=== PATIENT | female | born 1980 | race Caucasian/White ===

== ENCOUNTER 2017-09-05 05:39 | Inpatient (IN) | payer BC ==
[~2017-09-05] VITALS: Ht 177.8 cm; Wt 85.9 kg
[2017-09-05] VITALS (19 sets, daily range): BP systolic 100–121; BP diastolic 52–90; PULSE 64–101; TEMP 97.4–98.6
[~2017-09-05 05:39] MED LIST: FLOVENT DI50 MCG/Act IH; MOTRIN 600600 MG/TAB PO; PERCOCET 325 MG1 TA2 PO; PRENATAL1 TA7 PO; PROAIR HFA0.09 MG/AC IH; SENOKOT S 50 MG1 TAB PO
[2017-09-05 06:35] LABS: BASO % 0.4 % (0.0-2.0); EOS # 0.1 (0.0-0.7); EOS % 0.7 % (0-4.0); GRAN # 5.1 (1.4-6.5); GRAN % 68.9 % (42.2-75.2); LYMPH # 1.4 (1.2-3.4); LYMPH % 18.8 % (20.0-51.0); MEAN CELL VOLUME 90 fl (80.0-100.0); MEAN CORPUSCULAR HGB CONC 34 g/dl (33.0-37.0); MEAN PLATELET VOLUME 10.3 fl (7.4-10.4); MONO # 0.7 (0.1-0.6); MONO % 10.1 % (1.7-9.3); PLATELET COUNT 195 K/mm3 (130-400); RED BLOOD COUNT 3.76 M/mm3 (4.10-5.30); REDCELL DISTRIBUTION WIDTH-CV 13.2 % (11.5-14.5)
[2017-09-05 06:37] LABS: HEMOGLOBIN 11.4 g/dl (12.5-16.0); MEAN CORPUSCULAR HEMOGLOBIN 30 pg (27.0-31.0)
[2017-09-05] MEDS ORDERED: TUMS500 MG PO (06:47)
[2017-09-06 01:00] VITALS: BP 106/64; PULSE 66; TEMP 97.9
[2017-09-06 06:55] LABS: HEMATOCRIT 30.9 % (37.0-47.0); HEMOGLOBIN 10.2 g/dl (12.5-16.0)
[2017-09-06] MEDS ORDERED: PERCOCET 325 MG1 TA2 PO (07:14)
[2017-09-06] MEDS ORDERED: IBU600 MG PO (07:14)
[2017-09-06 07:30] VITALS: BP 99/60; PULSE 68; TEMP 97.3
[2017-09-06 12:22] VITALS: BP 113/70; PULSE 76; TEMP 98.4
[2017-09-06 16:17] VITALS: BP 124/66; PULSE 76; TEMP 98.1
[2017-09-06 19:45] VITALS: BP 124/70; PULSE 90; TEMP 97.9
[2017-09-07 04:15] VITALS: BP 113/65; PULSE 83; TEMP 97.8
[2017-09-07 10:00] VITALS: BP 120/84; PULSE 82; TEMP 98.5
== END 2017-09-07 13:00 | disposition home or self-care (01) | DRG 766 ==
LOC: OB 05:39 → LDR 10:01 → OB 09-07 13:00
PROVIDERS: Obstetrics & Gynecology
PROC: 10D00Z1 Extraction of Products of Conception, Low, Open Approach (ICD-10-PCS; principal; 2017-09-05)
DX: O34.211 Maternal care for low transverse scar from previous cesarean delivery (principal); Z3A.39 39 weeks gestation of pregnancy; Z37.0 Single live birth; Z22.330 Carrier of Group B streptococcus; Z23 Encounter for immunization
CPT/HCPCS: J0690; J2270; J2370; J2405; J2590; J7120

== ENCOUNTER → 2017-10-30 | Outpatient (CLI) | payer BC ==
[~2017-10-30] MED LIST changes: +IBU600 MG PO; +TUMS500 MG PO
== END ==
LOC: OLC 09:58
DX: Z39.1 Encounter for care and examination of lactating mother (principal); Z71.89 Other specified counseling